=== PATIENT | female | born 1970 | race Caucasian/White ===

== ENCOUNTER 2020-12-07 09:33 | Day surgery (SDC) | payer MEDICAID ==
[~2020-12-07] VITALS: Ht 157.5 cm; Wt 116.4 kg
[2020-12-07] VITALS (15 sets, daily range): BP systolic 106–128; BP diastolic 43–67
[2020-12-07] MEDS ORDERED: nitroGLYCERIN 0.4mg SUBLingual tab SL PRN ×2 (10:00→13:45)
[2020-12-07] MEDS ORDERED: glucagon, human recombinant 1mg kit SUBCUT PRN (10:00)
[2020-12-07] MEDS ORDERED: insulin Lispro (HumaLOG) vial - multi-dose SQ SCH (10:00)
[2020-12-07] MEDS ORDERED: dextrose 50%-water 50ml dispensing syringe IV PRN ×2 (10:00)
[2020-12-07] MEDS ORDERED: dextrose ORAL solution 15 GM/59 ML bottle PO PRN ×2 (10:00)
[2020-12-07] MEDS ORDERED: METF500T PO (10:04)
[2020-12-07] MEDS ORDERED: INSU100I31 SUBCUT (10:04)
[2020-12-07] MEDS ORDERED: GABA300C PO (10:04)
[2020-12-07] MEDS ORDERED: GLIM4TAB7 PO (10:04)
[2020-12-07] MEDS ORDERED: ALOG25TA PO (10:04)
[2020-12-07] MEDS ORDERED: THY60T PO (10:04)
[2020-12-07] MEDS ORDERED: ROSU20TA2 PO (10:04)
[2020-12-07] MEDS ORDERED: diphenhydrAMINE 25mg capsule PO PRN (10:05)
[2020-12-07] MEDS ORDERED: normal saline 1,000 ML IV SCH (10:05)
[2020-12-07] MEDS ORDERED: LORazepam 0.5 MG tablet PO PRN (10:05)
[2020-12-07] MEDS ORDERED: midazolam 1 mg/ML 2ml injection ONE ×2 (12:31→13:03)
[2020-12-07] MEDS ORDERED: LIDOcaine 1% (10mg/ml)w/preservative injection 20ml MDV ONE (12:31)
[2020-12-07] MEDS ORDERED: fentaNYL/PF 50MCG/1 ML 2ML syringe ONE (12:31)
[2020-12-07] MEDS ORDERED: iohexol 350MG/ML 100ml bottle IV ONE (12:31)
[2020-12-07] MEDS ORDERED: iohexol 350 MG/ML 50ML vial IV ONE (12:31)
[2020-12-07] MEDS ORDERED: ondansetron/PF 4mg/2ml inj IV PRN (13:45)
[2020-12-07] MEDS ORDERED: OXAZEpam 15mg capsule PO PRN (13:45)
[2020-12-07] MEDS ORDERED: HYDROcodone/acetaminophen 10/325mg tab PO PRN (13:45)
[2020-12-07] MEDS ORDERED: HYDROcodone/acetaminophen 5mg/325mg tablet PO PRN (13:45)
[2020-12-07] MEDS ORDERED: normal saline 1000ml 1,000 ML IV SCH (13:45)
[2020-12-07] MEDS ORDERED: proCHLORperazine 10 MG/2 ml inj IV PRN (13:45)
[2020-12-07] MEDS ORDERED: insulin glargine (Lantus) pen - multi-dose SQ SCH (21:00)
== END 2020-12-07 19:10 | disposition home or self-care (01) ==
LOC: SSTAY O 09:33
PROVIDERS: ATTEND Internal Medicine Cardiovascular Disease
DX: R94.39 Abnormal result of other cardiovascular function study (principal); I25.119 Atherosclerotic heart disease of native coronary artery with unspecified angina pectoris; E11.40 Type 2 diabetes mellitus with diabetic neuropathy, unspecified; I10 Essential (primary) hypertension; E66.01 Morbid (severe) obesity due to excess calories; E78.5 Hyperlipidemia, unspecified; Z87.891 Personal history of nicotine dependence
CPT/HCPCS: 82948; 93458; 99152; 99153; C1760; C1769; J1644; J1815; J2001; J2250; J3010; J7030; Q0163; Q9967; A4620; A6258